=== PATIENT | male | born 1955 | race American Indian/Alaskan Native ===

== ENCOUNTER 2016-12-06 16:54 | Emergency (ER) | payer OTHER ==
[2016-12-06 17:22] VITALS: BP 161/86
--- NOTE | 2016-12-06 17:52 | EDM.PDOC ---
ED HPI ENT - General Chief Complaint: ENT Problem Stated Complaint: TOOTHACHE Time Seen by Provider: 12/06/16 17:52 Source of Information: Reports: Patient, RN, RN notes reviewed History Limitations: Reports: No limitations - History of Present Illness INITIAL COMMENTS - FREE TEXT/NARRATIVE: Left lower molar filling out a month ago but just became painful about 5 days ago. Now mild left face swelling. Also cough x1 week. Denies fever. Severity: severe Location: Reports: mouth Quality: Reports: Ache Improves with: Reports: None Worsens with: Reports: None Associated Symptoms: Reports: no other symptoms - Related Data Allergies/ADRs: Allergies Allergy/AdvReac Type Severity Reaction Status Date / Time No Known Allergies Allergy Verified 12/06/16 17:26 Home Meds: Home Meds . [No Known Home Meds] 12/06/16 [History] Past Medical History - Past Health History Medical/Surgical History: Denies Medical/Surgical History Social & Family History - Tobacco Use Smoking Status *Q: Former Smoker Second Hand Smoke Exposure: No - Caffeine Use Caffeine Use: Reports: Coffee, Soda, Tea - Recreational Drug Use Recreational Drug Use: No ED ROS ENT - Review of Systems Review Of Systems: ROS reveals no pertinent complaints other than HPI. ED EXAM, ENT - Physical Exam Exam: See Below Exam Limited By: No limitations General Appearance: obese Eye Exam: bilateral eye: normal inspection Ears: normal external exam, normal canal, hearing grossly normal, normal TMs Nose: normal inspection, normal mucousa, no blood Mouth/Throat: Other (left mandibular molar decayed with adjacent gum swelling. ) Neck: normal inspection, supple, non-tender, full range of motion Respiratory/Chest: other (dry cough.) Cardiovascular: normal peripheral pulses, regular rate, rhythm, no edema, no gallop, no JVD, no murmur, no rub Neurological: alert, oriented, CN II-XII intact, normal cognition, normal gait, normal reflexes, no motor/sensory deficits Psychiatric: normal affect Skin: Warm, Dry, Intact, Normal color, No rash Lymphatic: no adenopathy Course - Vital Signs Last Recorded V/S: Last Vital Signs Temp 36.8 C 12/06/16 17:21 Pulse 75 12/06/16 17:21 Resp 16 12/06/16 17:21 BP 161/86 H 12/06/16 17:21 Pulse Ox 97 12/06/16 17:21 - Orders/Labs/Meds Meds: Medications Discontinued Medications Generic Name Dose Route Start Last Admin Trade Name Marla PRN Reason Stop Dose Admin Acetaminophen/Hydrocodone Bitart 1 tab 12/06/16 18:03 [place]ur 325-10 Mg PO 12/06/16 18:04 ONETIME ONE Amoxicillin 500 mg 12/06/16 18:03 Amoxil PO 12/06/16 18:04 ONETIME ONE Clindamycin HCl 300 mg 12/06/16 18:02 Cleocin PO 12/06/16 18:03 ONETIME ONE Lidocaine HCl 15 ml 12/06/16 18:03 Xylocaine 2% Viscous PO 12/06/16 18:04 ONETIME ONE Departure - Departure Time of Disposition: 18:13 Disposition: Home, Self-Care 01 Condition: good Clinical Impression: Abscessed tooth Instructions: Dental Abscess, [id number] Forms: ED Department Discharge Additional Instructions: Clindamycin 300mg. Amoxicillin 500 mg. Viscous liodcaine 2%. [place]arthur 5mg/325mg.
[2016-12-06] MEDS ORDERED: Clindamycin HCl 150 MG Cap PO ONE (18:02)
[2016-12-06] MEDS ORDERED: Amoxicillin 500 MG Cap PO ONE (18:03)
[2016-12-06] MEDS ORDERED: Lidocaine 2% Viscous Solution 15 ML Cup PO ONE (18:03)
[2016-12-06] MEDS ORDERED: Acetaminophen/HYDROcodone 325-10 MG Tab PO ONE (18:03)
== END 2016-12-06 18:21 | disposition home or self-care (01) ==
LOC: DL.ED 16:54
DX: K04.7 Periapical abscess without sinus (principal)
CPT/HCPCS: 99282; A9270; 99283

== ENCOUNTER 2021-09-30 13:56 | Emergency (ER) | payer OTHER, BC ==
[2021-09-30] MEDS ORDERED: Acetaminophen/HYDROcodone 325-10 MG Tab PO ONE (14:17)
[2021-09-30 14:26] VITALS: BP 139/87; PULSE 97
[2021-09-30 14:55] LABS: CORONAVIRUS COVID-19 NAA NEGATIVE (NEGATIVE)
[2021-09-30] MEDS ORDERED: Oseltamivir 75 MG Cap PO ONE (15:00)
== END 2021-09-30 15:07 | disposition home or self-care (01) ==
LOC: DL.ED 13:56
DX: J10.1 Influenza due to other identified influenza virus with other respiratory manifestations (principal); Z20.822 Contact with and (suspected) exposure to COVID-19
CPT/HCPCS: 0240U; 99283; A9270